=== PATIENT | male | born 1965 ===

== ENCOUNTER 2018-02-04 14:27 | Outpatient (CLI) | payer OTHER ==
[~2018-02-04] VITALS: Ht 188 cm; Wt 97.5 kg
== END 2018-02-04 15:06 | disposition home or self-care (01) ==
LOC: OFIC 805 14:27
DX: R22.1 Localized swelling, mass and lump, neck (principal); M54.2 Cervicalgia; R09.89 Other specified symptoms and signs involving the circulatory and respiratory systems